=== PATIENT | female | born 1995 | race Caucasian/White ===

== ENCOUNTER 2017-12-07 14:26 | Emergency (ER) | payer MEDICAID, OTHER ==
[2017-12-07 14:45] VITALS: BP 127/79
== END 2017-12-07 15:50 | disposition left against medical advice (07) ==
LOC: ER 14:26
DX: Z53.21 Procedure and treatment not carried out due to patient leaving prior to being seen by health care provider

== ENCOUNTER 2018-12-21 11:07 | Inpatient (IN) ==
[2018-12-21] MEDS ORDERED: OXYTOCIN/DEXTROSE 5%-WATER 30 UNITS/500 ML BAG IV ONE ×2 (11:25→20:23)
[2018-12-21] MEDS ORDERED: MISOPROSTOL 100 MCG TABLET VG PRN (11:25)
[2018-12-21] MEDS ORDERED: LIDOCAINE HCL 50 ML VIAL PERI PRN (11:25)
[2018-12-21] MEDS ORDERED: ONDANSETRON HCL/PF 2 MG/ML VIAL IV PRN ×2 (11:25→11:53)
[2018-12-21] MEDS ORDERED: NALBUPHINE HCL 10 MG/ML AMPUL IV PRN ×2 (11:25)
[2018-12-21] MEDS ORDERED: RINGER'S SOLUTION,LACTATED 1,000 ML IV PRN (11:25)
[2018-12-21] MEDS ORDERED: RINGER'S SOLUTION,LACTATED 1,000 ML IV ONE (11:25)
[2018-12-21] MEDS ORDERED: BUPIVACAINE HCL/0.9 % NACL/PF 250 ML EP PRN (11:53)
[2018-12-21] MEDS ORDERED: NALOXONE HCL 1 MG/1 ML SYRG IV PRN (11:53)
--- NOTE | 2018-12-21 11:54 | ANES ---
Anesthesia Pre Procedure Eval Vitals/Labs: Last Vital Signs Temp 37.4 C 12/21/18 11:31 Pulse 91 12/21/18 11:31 Resp 18 12/21/18 11:31 BP 133/85 12/21/18 11:31 Pulse Ox 100 12/21/18 11:31 HOME MEDICATIONS vitamin,calcium,gpggzpdc-plub-vienv acid tablet 1 tab PO DAILY 05/28/18 [Last Taken 12/20/18 17:00] cyclobenzaprine 10 mg tablet 10 mg PO TID PRN #30 tab 10/29/18 [Last Taken 12/20/18 22:00] Allergies/Adverse Reactions: Allergies Allergy/AdvReac Type Severity Reaction Status Date / Time No Known Allergies Allergy Verified 12/21/18 11:00 - Planned Procedure Planned Procedure: Labor epidural Medication List Reviewed:: Yes Allergies Verified: Yes Medical History (Last Reviewed 12/21/18 @ 11:53 by Quan Harmon CRNA) History of seizure disorder Onset Date: ~2008 1-2 x per year, does not have a regular dr Hx of migraines History of wisdom tooth extraction Onset Date: ~2013 Surgical History (Last Reviewed 12/21/18 @ 11:53 by Quan Harmon CRNA) History of appendectomy Onset Date: ~2015 Family History (Last Reviewed 12/21/18 @ 11:53 by Quan Harmon CRNA) Mother Alcohol abuse Father Cancer skin cancer Hypertension Hyperlipemia - Anesthesia Assessment and Plan ASA Class: PS, II Anesthesia Type Plan: Epidural
[2018-12-21] MEDS ORDERED: BUPIVACAINE HCL/PF 30 ML VIAL EP SCH (12:00)
--- NOTE | 2018-12-21 12:24 | ANES ---
Anesthesia Procedure Note Procedure Note: ANESTHESIA PROCEDURE NOTE Date of Procedure: 12/21/2018. Time of procedure: 09/16/2004. Performed by: Quan Harmon CRNA Geotechnical Intern: None. Preprocedure diagnosis: Active labor. Post procedure diagnosis: Same. Procedure: Insertion of labor epidural. Indications: The patient is a 23 -year-old female in active labor requesting labor epidural for pain management. Findings: See below. Details of the procedure: The patient was placed in a sitting position. DuraPrep as well as Betadine swabs X3 was applied to the patient's back. Patient was then draped in a sterile fashion. Lidocaine 1% was infiltrated to the skin and subcutaneous tissues at the level of the L3-4 interspace. The epidural space was identified using a 18-gauge Tuohy needle with [id number]-[id number] technique. Epidural catheter was inserted to a depth of 12 centimeters at skin. Negative test dose was elicited using 3 mL of 1.5% preservative-free lidocaine plus epinephrine 1 200,000. The epidural catheter was then taped and secured in place. A loading dose of 8 mL of 0.25% preservative-free bupivacaine was administered to the epidural catheter after negative aspiration for blood and CSF. EBL: Minimal. Fluids: N/A. Specimen: N/A. Post procedure condition: The patient tolerated the procedure well. No compli cations were noted. Thank you for this consultation. Quan Harmon CRNA
--- NOTE | 2018-12-21 12:24 | ANES ---
Post Anesthesia Assessment - Vital Signs Vitals: Last Vital Signs Temp 37.3 C 12/21/18 12:23 Pulse 89 12/21/18 12:23 Resp 18 12/21/18 12:23 BP 140/75 H 12/21/18 12:23 Pulse Ox 99 12/21/18 12:23 Airway Patency: Normal - Mental Status Level Of Consciousness: Awake - N/V Assessment Nausea/Vomiting Presence: None Dehydration:: No
--- NOTE | 2018-12-21 13:08 | HP ---
Chief Complaint - Chief Complaint Date of Service: 12/21/18 Time of Service: 13:05 Chief Complaint: Labor History of Present Illness: The patient presented to the office complaining of regular ctx every 1-2 minutes. She denies lof or vb. Fetus was active. Medical History (Last Reviewed 12/21/18 @ 11:53 by Quan Harmon CRNA) History of seizure disorder Onset Date: ~2008 1-2 x per year, does not have a regular dr Hx of migraines History of wisdom tooth extraction Onset Date: ~2013 Surgical History: Surgical History (Last Reviewed 12/21/18 @ 11:53 by Quan Harmon CRNA) History of appendectomy Onset Date: ~2015 Family History: Family History (Last Reviewed 12/21/18 @ 11:53 by Quan Harmon CRNA) Mother Alcohol abuse Father Cancer skin cancer Hypertension Hyperlipemia Social History: Preferred Language Wol[place] Smoking Status Current every day smoker Smoking packs per day 0.5 Psych History No pertinent hx (Last Updated 12/21/18 @ 11:07 by Paulina Gregorio MD) No Social History Section defined Review Of Systems (GEN) - Review of Systems Generalized/Overall Review: Present: No Symptoms Reported Misc: All systems neg except as marked Immunizations: IMMUNIZATION HX Immunizations Up to Date Yes History of Influenza Vaccine Yes Hx Pneumococcal Vaccination No Allergies/Adverse Reactions: Allergies Allergy/AdvReac Type Severity Reaction Status Date / Time No Known Allergies Allergy Verified 12/21/18 11:00 Home Medications: HOME MEDICATIONS vitamin,calcium,gnwvojks-stpg-vgnla acid tablet 1 tab PO DAILY 05/28/18 [Last Taken 12/20/18 17:00] cyclobenzaprine 10 mg tablet 10 mg PO TID PRN #30 tab 10/29/18 [Last Taken 12/20/18 22:00] Exam - Exam Vital Signs: Vital Signs - Last Taken Temp 37.3 C 12/21/18 12:23 Pulse 89 12/21/18 12:23 Resp 18 12/21/18 12:23 BP 140/75 H 12/21/18 12:23 Pulse Ox 99 12/21/18 12:23 Constitutional: Present: Alert, Oriented x3, Cooperative, No distress Respiratory: Present: lungs clear, normal breath sounds Cardiovascular/Chest: Present: regular rate, rhythm, no murmur Abdomen: Present: soft, nontender, nondistended /Rectal: Present: Other - cvx 5/100/-1 Extremity: Present: non-tender, no calf tenderness, pedal edema Skin Exam: Present: normal color, warm/dry, no cyanosis Appearance: Present: appropriate appearance Eye contact: Present: cooperative Thoughts: Present: normal thought pattern Diagnostic Studies: Laboratory Results Blood Type A Positive 12/21/18 11:37 Antibody Screen Negative 12/21/18 11:37 Assessment/Plan - Narrative Narrative: 23 yo @ 38w 5d in labor AROM with light meconium GBS negative: prophylaxis not indicated
[2018-12-21 13:22] LABS: Cocaine Ur Negative (NEGATIVE); Urine Barbiturate Negative (NEGATIVE); Urine Benzodiazepines Negative (NEGATIVE); Urine Opiates Negative (NEGATIVE); Urine PCP Negative (NEGATIVE); Urine THC Negative (NEGATIVE)
[2018-12-21] MEDS: OXYTOCIN/DEXTROSE 5%-WATER 30 UNITS/500 ML BAG IV ONE ×2 (15:46→23:13)
[2018-12-21] MEDS ORDERED: BENZOCAINE/MENTHOL 81 SPRAY CAN TP PRN (20:23)
[2018-12-21] MEDS ORDERED: BISACODYL 10 MG SUPP.RECT RC PRN (20:23)
[2018-12-21] MEDS ORDERED: diphenhydrAMINE HCL 25 MG CAPSULE PO PRN (20:23)
[2018-12-21] MEDS ORDERED: GLYCERIN/WITCH HAZEL LEAF 40 APPL BOX TP PRN (20:23)
[2018-12-21] MEDS ORDERED: oxyCODONE HCL/ACETAMINOPHEN 1 TAB TABLET PO PRN (20:23)
[2018-12-21] MEDS ORDERED: SENNOSIDES 8.6 MG TABLET PO PRN (20:23)
[2018-12-21] MEDS ORDERED: HYDROCORTISONE 30 APPL TUBE TP PRN (20:23)
--- NOTE | 2018-12-21 20:29 | OR ---
Operative Report - Dictated Report Narrative: Date of delivery: 12/21/2018 Time of delivery: 1997 Gender: male APGARS: 7/9 weight: 3242 grams Description of the procedure: The patient is a 23 year old @ 38w 5d who presented in labor today. She was augmented with AROM and pitocin. She progressed to complete dilation. She delivered a viable male in the HOMAR presentation. A tight nuchal cord was noted so the cord was clamped at the perineum. The rest of the delivered atraumatically. The placenta was delivered by expression and appeared intact. A second degree perineal laceration was repaired in the standard surgical fashion. A supraurethral laceration was noted and thus a catheter was placed in the urethra to ensure that the urethra was not closed during the repair. EBL: 200 mL Complications: none Lacerations: 2nd degree perineal, supraurethral Specimen: placenta to pathology Definition: * The number of deliveries resulting in a live the patient experienced prior to current hospitalization * The previous delivery of live twins or any live multiple gestation is consider ed one live event. *If primagravida or nulliparous is documented select zero for the number of previous live births. Live births: 0
[2018-12-21] MEDS: DOCUSATE SODIUM 100 MG CAPSULE PO SCH (23:12)
[2018-12-22] MEDS: oxyCODONE HCL/ACETAMINOPHEN 1 TAB TABLET PO PRN ×2 (06:53→19:35)
[2018-12-22] MEDS: IBUPROFEN 800 MG TABLET PO PRN ×2 (06:54→19:36)
[2018-12-22] MEDS: DOCUSATE SODIUM 100 MG CAPSULE PO SCH ×2 (09:31→21:12)
--- NOTE | 2018-12-22 12:42 | PN ---
Subjective - Date and Time Seen Date: 12/22/18 Time: 12:39 Subjective Narrative: Pt without complaints Objective Objective Narrative: See vital signs - Review of Systems Generalized/Overall Review: Reports: No Symptoms Reported Misc: All systems neg except as marked - Vitals Vitals: Last Vital Signs Temp 36.3 C 12/22/18 11:58 Pulse 106 H 12/22/18 11:58 Resp 18 12/22/18 11:58 BP 132/74 12/22/18 11:58 Pulse Ox 99 12/22/18 11:58 - Exam Constitutional: Present: Alert, Oriented x3, Cooperative, No distress Abdomen: Present: soft, nontender, nondistended Extremity: Present: non-tender, no calf tenderness Skin Exam: Present: normal color, warm/dry, no cyanosis Appearance: Present: appropriate appearance Eye contact: Present: cooperative Thoughts: Present: normal thought pattern Cauti Physician Documentation - Urinary Catheter Management Urethral (Quintero) Urethral Indwelling: No Date of Insertion: 12/21/18 Time of Insertion: 12:45 Assessment/Plan Plan Narrative: PPD 1 s/p Doing well Discharge tomorrow
[2018-12-23] MEDS: IBUPROFEN 800 MG TABLET PO PRN (07:18)
[2018-12-23] MEDS: oxyCODONE HCL/ACETAMINOPHEN 1 TAB TABLET PO PRN (07:18)
[2018-12-23 08:30] VITALS: BP 122/78
--- NOTE | 2018-12-23 09:03 | PN ---
Subjective - Date and Time Seen Date: 12/23/18 Time: 09:00 Subjective Narrative: Pt without complaints Objective Objective Narrative: See vital signs - Review of Systems Generalized/Overall Review: Reports: No Symptoms Reported Misc: All systems neg except as marked - Vitals Vitals: Last Vital Signs Temp 36.9 C 12/23/18 08:21 Pulse 120 H 12/23/18 08:21 Resp 20 12/23/18 08:21 BP 122/78 12/23/18 08:21 Pulse Ox 98 12/23/18 00:00 - Exam Constitutional: Present: Alert, Oriented x3, Cooperative, No distress Abdomen: Present: soft, nontender, nondistended Extremity: Present: non-tender, no calf tenderness, pedal edema Skin Exam: Present: normal color, warm/dry, no cyanosis Appearance: Present: appropriate appearance Eye contact: Present: cooperative Thoughts: Present: normal thought pattern Cauti Physician Documentation - Urinary Catheter Management Urethral (Quintero) Urethral Indwelling: No Date of Insertion: 12/21/18 Time of Insertion: 12:45 Assessment/Plan Plan Narrative: PPD 2 s/p Doing well Discharge home
== END 2018-12-23 11:55 | disposition home or self-care (01) | DRG 806 ==
LOC: OB 11:07
PROVIDERS: ADMIT Obstetrics & Gynecology; ATTEND Obstetrics & Gynecology
CPT/HCPCS: 59025; 80307; 86850; 88307